=== PATIENT | female | born 1955 | race Caucasian/White ===

== ENCOUNTER 2021-11-30 10:24 | Emergency (ER) | payer OTHER, BC ==
[2021-11-30] MEDS ORDERED: ONDANSETRON 4 MG/2 ML VIAL ONE (11:09)
[2021-11-30] MEDS ORDERED: FENTANYL CITR 100 MCG/2 ML ONE (11:09)
[2021-11-30 11:35] LABS: Absolute Lymphocytes (CBC) 1.3 K/uL (0.7-4.9); Hematocrit 39.5 % (36.0-45.0); Lymphocytes % 23.6 % (15.3-44.8); RBC Red Blood Cell Count 4.62 M/uL (3.86-4.86)
[2021-11-30 11:39] LABS: Calcium Oxalate Crystals- Ur FEW (NONE SEEN); Urine Bacteria <20 /HPF (<20); Urine RBC >50 /HPF (NONE SEEN)
[2021-11-30 11:54] LABS: Albumin 3.4 g/dL (3.4-5.0); Bilirubin Direct 0.1 mg/dL (0-0.2); Bilirubin Total 0.3 mg/dL (0.2-1.0); Potassium 3.2 mmol/L (3.5-5.1); Protein, Total 7.2 g/dL (6.4-8.2)
--- NOTE | 2021-11-30 12:24 | RAD REPORT ---
EXAM DESCRIPTION: CT - Abdomen Pelvis W Contrast - 11/30/2021 12:11 pm CLINICAL HISTORY: ABD PAIN COMPARISON: No comparisons TECHNIQUE: Biphasic, helical CT imaging of the abdomen and pelvis was performed following 100 ml non -ionic IV contrast. No oral contrast administered. All CT scans are performed using dose optimization technique as appropriate and may include automated exposure control or mA/KV adjustment according to patient size. FINDINGS: No suspicious findings in the lung bases. The liver, spleen, and pancreas show no suspicious findings. Gallbladder and biliary tree are also wi thout suspicious finding. Mild left-sided hydronephrosis of the pelvis, calices and proximal ureter is present secondary to a 3 mm stone in the proximal left ureter. This causes delayed function of the left kidney relative to th e right. No right-sided hydronephrosis. No other obstructing or nonobstructing calculi. No pyelonephr itis or acute parenchymal process. Urinary bladder is only partially filled which limits assessment. No adrenal abnormalities. No ovarian abnormality seen. Patient has a lobulated multi fibroid uterus. No dilated bowel loops or bowel wall thickening. Appendix is not clearly defined. No appendicitis fin dings. Small hiatal hernia is present. No free air, free fluid or pneumatosis. No hernia, mass or bu lky lymphadenopathy. No suspicious bony findings. IMPRESSION: Mild left-sided hydronephrosis secondary to a 3 mm stone in the proximal left ureter. Additional nonacute findings detailed in the body of the report.
[2021-11-30] MEDS ORDERED: TAMSULOSIN 0.4 MG SR CAP ONE (13:06)
[2021-11-30] MEDS ORDERED: NA CHLORIDE 0.9% 1,000 ML ONE (13:06)
[2021-11-30] MEDS ORDERED: KETOROLAC 30 MG/ML INJ ONE (13:06)
[2021-11-30] MEDS ORDERED: CIPROFLOXACIN HCL 500 MG TAB ONE (14:20)
--- NOTE | 2021-11-30 15:12 | ER ---
Nurse's Notes [facility] Name: Chrissy Thomson Age: 65 yrs Sex: Female : 1955 Arrival Date: 11/30/2021 Time: 10:31 Bed 17 Private MD: Diagnosis: Calculus of ureter;Coronavirus infection, unspecified Presentation: 11/30 10:51 Chief complaint: Patient states: had a UTI a week ago and this morning she is having iw low back pain , feels like she may have a kidney stone. Coronavirus screen: Client presents with at least one sign or symptom that may indicate coronavirus-19. Ebola Screen: Patient negative for fever greater than or equal to 101.5 degrees Fahrenheit, and additional compatible Ebola Virus Disease symptoms Patient denies exposure to infectious person. Patient denies travel to an Ebola-affected area in the 21 days before illness onset. No symptoms or risks identified at this time. Initial Sepsis Screen: Does the patient meet any 2 criteria? No. Patient's initial sepsis screen is negative. Does the patient have a suspected source of infection? No. Patient's initial sepsis screen is negative. Risk Assessment: Do you want to hurt yourself or someone else? Patient reports no desire to harm self or others. Onset of symptoms was November 30, 2021. 10:51 Method Of Arrival: Ambulatory iw 10:51 Acuity: ROBB 3 iw Historical: - Allergies: 10:52 PENICILLINS; iw 10:52 Codeine; iw - Home Meds: 10:52 None [Active]; iw - PMHx: 10:52 None; iw - PSHx: 10:52 None; iw - Immunization history:: Client reports receiving the 2nd dose of the Covid vaccine. - Social history:: Smoking status: Patient denies any tobacco usage or history of. Screenin:19 Abuse screen: Denies threats or abuse. Nutritional screening: No deficits noted. ae4 Tuberculosis screening: No symptoms or risk factors identified. Fall Risk None identified. Assessment: 11:00 General: Appears uncomfortable, slender, well groomed, Behavior is cooperative, ae4 restless. 11:00 Pain: Pain radiates to left low back Pain currently is 1 out of 10 on a pain scale. ae4 Neuro: Level of Consciousness is awake, alert, obeys commands, Oriented to person, place, time, situation, Appropriate for age. Cardiovascular: Patient's skin is warm and dry. Respiratory: Airway is patent Respiratory effort is even, unlabored, Respiratory pattern is regular. GI: Reports nausea. : Denies burning with urination, urinary frequency. EENT: No signs and/or symptoms were reported regarding the EENT system. Derm: Skin is pink, warm \T\ dry. Musculoskeletal: No signs and/or symptoms reported regarding the musculoskeletal system. 13:19 Reassessment: Patient appears in no apparent distress at this time. Patient and/or ae4 family updated on plan of care and expected duration. Pain level reassessed. Patient is alert, oriented x 3, equal unlabored respirations, skin warm/dry/pink. Patient states feeling better. Patient states symptoms have improved. 13:31 Reassessment: Patient appears in no apparent distress at this time. Patient and/or ae4 family updated on plan of care and expected duration. Pain level reassessed. Patient states feeling better. Patient states symptoms have improved. 13:41 Reassessment: Patient and/or family updated on plan of care and expected duration. Pain ae4 level reassessed. Patient is alert, oriented x 3, equal unlabored respirations, skin warm/dry/pink. Patient states feeling better. Patient states symptoms have improved. Vital Signs: 10:51 BP 159 / 88; Pulse 89; Resp 16; Temp 97.9; Pulse Ox 98% on R/A; Weight 72.57 kg; Height iw 5 ft. 6 in. (167.64 cm); 11:36 BP 160 / 75; Pulse 75; Resp 18; Pulse Ox 97% on R/A; ae4 13:18 BP 164 / 77; Pulse 80; Resp 18; Pulse Ox 100% on R/A; ae4 13:41 BP 137 / 67; Pulse 80; Resp 16; Pulse Ox 100% on R/A; ae4 14:14 BP 143 / 74; Pulse 80; Resp 16; Pulse Ox 100% on R/A; ae4 10:51 Body Mass Index 25.82 (72.57 kg, 167.64 cm) iw ED Course: 10:31 Patient arrived in ED. ds1 10:52 Triage completed. iw 10:53 Arm band placed on. iw 10:55 Marinas, Romie, CIGAR MACHINE FEEDER is PHCP. pm1 10:55 Molina Gutierrez MD is Attending Physician. pm1 10:59 Wil Workman RN is Primary Nurse. ae4 11:00 Call light in reach. Side rails up X 1. Pulse ox on. NIBP on. Warm blanket given. ae4 11:09 Inserted saline lock: 22 gauge in right antecubital area, using aseptic technique. ae4 Blood collected. 12:11 CT Abd/Pelvis - IV Contrast Only In Process Unspecified. EDMS 15:55 No provider procedures requiring assistance completed. IV discontinued, intact, ae4 bleeding controlled, No redness/swelling at site. Pressure dressing applied. Administered Medications: 11:00 Drug: Zofran (Ondansetron) 4 mg Route: IVP; Site: right antecubital; ae4 14:14 Follow up: Response: No adverse reaction ae4 11:12 Drug: fentaNYL (PF) 50 mcg Route: IVP; Site: right antecubital; ae4 13:17 Follow up: Response: Pain is decreased ae4 12:20 Drug: fentaNYL (PF) 50 mcg Route: IVP; Site: right antecubital; ae4 13:18 Follow up: Response: No adverse reaction; Pain is decreased ae4 13:10 Drug: NS 0.9% 1000 ml Route: IV; Rate: 1000 ml; Site: right antecubital; ae4 14:40 Follow up: IV Status: Completed infusion; IV Intake: 1000ml ae4 13:10 Drug: Ketorolac 15 mg Route: IVP; Site: right antecubital; ae4 14:14 Follow up: Response: No adverse reaction; Pain is decreased ae4 13:12 Drug: Flomax (tamsulosin) 0.4 mg Route: PO; ae4 14:14 Follow up: Response: No adverse reaction ae4 14:26 Drug: Cipro (ciprofloxacin) 500 mg Route: PO; ae4 15:54 Follow up: Response: No adverse reaction ae4 Intake: 14:40 IV: 1000ml; Total: 1000ml. ae4 Outcome: 15:12 Discharge ordered by . pm1 15:55 Discharged to home ambulatory. ae4 15:55 Condition: improved 15:55 Discharge instructions given to patient, Instructed on discharge instructions, follow up and referral plans. no drinking with medication, no driving heavy equipment, medication usage, Demonstrated understanding of instructions, Prescriptions given X 4. 15:56 Patient left the ED. ae4 Signatures: Dispatcher [employer] EDNE Yvette Delgado ds1 Alena Corea, RN RN iw Romie Concepcion NP CIGAR MACHINE FEEDER pm1 Wil Workman RN RN ae4
--- NOTE | 2021-11-30 15:12 | EDPHYS ---
Physician Documentation [facility] Name: Chrissy Thomson Age: 65 yrs Sex: Female : 1955 Arrival Date: 11/30/2021 Time: 10:31 Bed 17 Private MD: ED Physician Molina Gutierrez HPI: 11/30 12:16 This 65 yrs old Female presents to ER via Ambulatory with complaints of Back Pain. pm1 12:16 The patient presents with pain that is acute, with no known mechanism of injury. The pm1 symptoms are located in the low back. Onset: The symptoms/episode began/occurred generalized body aches and back pain for the past 1 week, back pain worse today. 12:16 The pain does not radiate. Associated signs and symptoms: Pertinent positives: nausea, pm1 vomiting, Pertinent negatives: abdominal pain, chest pain, fever, shortness of breath. The problem was sustained from unknown cause. Modifying factors: The patient symptoms are alleviated by nothing, the patient symptoms are aggravated by nothing. Severity of symptoms: in the emergency department the symptoms are actually worse. The patient has not experienced similar symptoms in the past. The patient has not recently seen a physician, but discussed her symptoms with PCP at onset and prescribed PCN for possible UTI. Historical: - Allergies: 10:52 PENICILLINS; iw 10:52 Codeine; iw - Home Meds: 10:52 None [Active]; iw - PMHx: 10:52 None; iw - PSHx: 10:52 None; iw - Immunization history:: Client reports receiving the 2nd dose of the Covid vaccine. - Social history:: Smoking status: Patient denies any tobacco usage or history of. ROS: 12:16 Constitutional: Negative for fever, chills, and weight loss, Cardiovascular: Negative pm1 for chest pain, palpitations, and edema, Respiratory: Negative for shortness of breath, cough, wheezing, and pleuritic chest pain. 12:16 : Negative for injury, bleeding, discharge, and swelling, MS/Extremity: Negative for injury and deformity, Skin: Negative for injury, rash, and discoloration, Neuro: Negative for headache, weakness, numbness, tingling, and seizure. 12:16 Abdomen/GI: Positive for nausea and vomiting, Negative for abdominal pain, diarrhea, constipation. 12:16 Back: Positive for flank pain, on the left. 12:16 All other systems are negative. Exam: 12:16 Constitutional: This is a well developed, well nourished patient who is awake, alert, pm1 and in no acute distress. Head/Face: Normocephalic, atraumatic. 12:16 Abdomen/GI: Soft, non-tender, with normal bowel sounds. No distension or tympany. No guarding or rebound. No evidence of tenderness throughout. Back: No spinal tenderness. No costovertebral tenderness. Full range of motion. Skin: Warm, dry with normal turgor. Normal color with no rashes, no lesions, and no evidence of cellulitis. MS/ Extremity: Pulses equal, no cyanosis. Neurovascular intact. Full, normal range of motion. 12:16 Cardiovascular: Exam negative for acute changes, Rate: normal, Rhythm: regular, Pulses: no pulse deficits are appreciated. 12:16 Respiratory: Exam negative for acute changes, respiratory distress, shortness of breath, Breath sounds: are clear throughout. 12:16 Neuro: Exam negative for acute changes, Orientation: is normal, Mentation: is normal, Motor: is normal, moves all fours. Vital Signs: 10:51 BP 159 / 88; Pulse 89; Resp 16; Temp 97.9; Pulse Ox 98% on R/A; Weight 72.57 kg; Height iw 5 ft. 6 in. (167.64 cm); 11:36 BP 160 / 75; Pulse 75; Resp 18; Pulse Ox 97% on R/A; ae4 13:18 BP 164 / 77; Pulse 80; Resp 18; Pulse Ox 100% on R/A; ae4 13:41 BP 137 / 67; Pulse 80; Resp 16; Pulse Ox 100% on R/A; ae4 14:14 BP 143 / 74; Pulse 80; Resp 16; Pulse Ox 100% on R/A; ae4 10:51 Body Mass Index 25.82 (72.57 kg, 167.64 cm) iw MDM: 10:55 Patient medically screened. pm1 15:11 Data reviewed: vital signs. Data interpreted: Pulse oximetry: on room air is 100 %. pm1 Interpretation: normal. 15:11 Counseling: I had a detailed discussion with the patient and/or guardian regarding: the pm1 historical points, exam findings, and any diagnostic results supporting the discharge/admit diagnosis, lab results, radiology results, the need for outpatient follow up, to return to the emergency department if symptoms worsen or persist or if there are any questions or concerns that arise at home. 11/30 10:57 Order name: Basic Metabolic Panel; Complete Time: 12:13 pm1 11/30 10:57 Order name: CBC with Diff; Complete Time: 12:13 pm1 11/30 10:57 Order name: Hepatic Function; Complete Time: 12:13 pm1 11/30 10:57 Order name: Lipase; Complete Time: 12:13 pm1 11/30 10:57 Order name: Urine Microscopic Only; Complete Time: 12:13 pm1 11/30 11:00 Order name: CT Abd/Pelvis - IV Contrast Only; Complete Time: 12:24 pm1 11/30 12:56 Order name: SARS-COV-2 RT PCR; Complete Time: 14:33 EDMS 11/30 10:57 Order name: IV Saline Lock; Complete Time: 11:35 pm1 11/30 10:57 Order name: Labs collected and sent; Complete Time: 11:35 pm1 11/30 10:57 Order name: Urine Dipstick-Ancillary (obtain specimen); Complete Time: 11:35 pm1 Administered Medications: 11:00 Drug: Zofran (Ondansetron) 4 mg Route: IVP; Site: right antecubital; ae4 14:14 Follow up: Response: No adverse reaction ae4 11:12 Drug: fentaNYL (PF) 50 mcg Route: IVP; Site: right antecubital; ae4 13:17 Follow up: Response: Pain is decreased ae4 12:20 Drug: fentaNYL (PF) 50 mcg Route: IVP; Site: right antecubital; ae4 13:18 Follow up: Response: No adverse reaction; Pain is decreased ae4 13:10 Drug: NS 0.9% 1000 ml Route: IV; Rate: 1000 ml; Site: right antecubital; ae4 14:40 Follow up: IV Status: Completed infusion; IV Intake: 1000ml ae4 13:10 Drug: Ketorolac 15 mg Route: IVP; Site: right antecubital; ae4 14:14 Follow up: Response: No adverse reaction; Pain is decreased ae4 13:12 Drug: Flomax (tamsulosin) 0.4 mg Route: PO; ae4 14:14 Follow up: Response: No adverse reaction ae4 14:26 Drug: Cipro (ciprofloxacin) 500 mg Route: PO; ae4 15:54 Follow up: Response: No adverse reaction ae4 Disposition: 12/01 04:38 Co-signature as Attending Physician, Molina Gutierrez MD I agree with the assessment and chao plan of care. Disposition Summary: 11/30/21 15:12 Discharge Ordered Location: Home pm1 Problem: new pm1 Symptoms: have improved pm1 Condition: Stable pm1 Diagnosis - Calculus of ureter pm1 - Coronavirus infection, unspecified pm1 Followup: pm1 - With: Emergency Department - When: As needed - Reason: Worsening of condition Followup: pm1 - With: Private Physician - When: 2 - 3 days - Reason: Recheck today's complaints, Continuance of care, Re-evaluation by your physician Discharge Instructions: - Discharge Summary Sheet pm1 - Kidney Stones pm1 - Dietary Guidelines to Help Prevent Kidney Stones pm1 - COVID-19 pm1 - COVID-19 Frequently Asked Questions pm1 - 10 Things You Can Do to Manage Your COVID-19 Symptoms at Home - [facility] pm1 - COVID-19: Quarantine vs. Isolation - [facility] pm1 Forms: - Medication Reconciliation Form pm1 - Thank You Letter pm1 - Antibiotic Education pm1 - Prescription Opioid Use pm1 Prescriptions: - Cipro 500 mg Oral Tablet - take 1 tablet by ORAL route every 12 hours for 7 days; 14 tablet; Refills: 0, pm1 Product Selection Permitted - ondansetron 4 mg Oral tablet,disintegrating - place 1 tablet by TRANSLINGUAL route every 8 hours As needed; 20 tablet; pm1 Refills: 0, Product Selection Permitted - Flomax 0.4 mg Oral capsule - take 1 capsule by ORAL route once daily for 10 days 1/2 hour following the same pm1 meal each day; 10 capsule; Refills: 0, Product Selection Permitted - Tylenol-Codeine #3 300 mg-30 mg Oral - take 2 tablet by ORAL route every 6 hours As needed; 20 tablet; Refills: 0, pm1 Product Selection Permitted Signatures: Dispatcher [employer] Molina Lee MD MD cha Williams, Irene, RN RN iw Marinas, Patrick, NP PROGRAM TRAINER pm1 Wil Workman RN RN ae4 Corrections: (The following items were deleted from the chart) 11/30 12:56 12:15 CORONAVIRUS+LOLITALeBRZ ordered. EDMS EDMS
[2021-11-30 16:04] VITALS: TEMP 97.9
[2021-11-30 16:07] VITALS: O2SAT 100
[2021-11-30 16:10] VITALS: BP 143/74
== END 2021-11-30 15:56 | disposition home or self-care (01) ==
LOC: ER 10:24
DX: N20.1 Calculus of ureter (principal); U07.1 COVID-19; Z88.0 Allergy status to penicillin
CPT/HCPCS: 96361; 85025; 80048; 36415; 80076; 81015; 83690; 74177; 96375; 96374; 99284; U0003; Q9967; J3010; J7030; J2405

== ENCOUNTER 2021-12-02 09:24 | Emergency (ER) | payer OTHER, BC ==
[2021-12-02 10:13] LABS: Urine Blood 2+ (Negative); Urine Glucose Negative (Negative); Urine Protein 1+ (Negative); Urine Specific Gravity >=1.030 (1.005-1.030)
--- NOTE | 2021-12-02 10:19 | RAD REPORT ---
EXAM DESCRIPTION: CTStone Protocol - 12/02/2021 10:06 am CLINICAL HISTORY: FLANK PAIN COMPARISON: Abdomen Pelvis W Contrast dated 11/30/2021; CTSTONE PROTOCOL dated 06/27/2013 TECHNIQUE: CT of the abdomen and pelvis was performed. All CT scans are performed using dose optimization technique as appropriate and may include automated exposure control or mA/KV adjustment according to patient size. FINDINGS: Lower chest: Small moderate hiatal hernia. Thickened distal esophagus suggesting gastroeso phageal reflux. Liver: No acute abnormality or suspicious lesions. Biliary: No biliary ductal dilatation. Stomach: No significant focal abnormality. Duodenum: No significant focal abnormality. Pancreas: No significant abnormality. Spleen: No significant abnormality. Adrenal: No suspicious lesions. Kidney/ureter: Persistent mild left-sided hydroureteronephrosis. The stone has migrated into the dist al ureter and is just proximal to the left UVJ. The stone measures 3 millimeters. Retroperitoneum: No retroperitoneal adenopathy. Vascular: No aneurysm. Bowel: No significant focal abnormality. Peritoneum: No ascites or free air. Bladder: Grossly unremarkable. Reproductive: Fibroid uterus. Bones: No acute fracture. Other: n/a IMPRESSION: The 3 mm left ureteral stone has migrated into the distal ureter, just proximal to the l eft UVJ. Mild left-sided hydroureteronephrosis persists.
[2021-12-02 10:48] LABS: Urine Bacteria 20-50 /HPF (<20); Urine RBC 20-50 /HPF (NONE SEEN)
[2021-12-02] MEDS ORDERED: NA CHLORIDE 0.9% 1,000 ML ONE ×2 (11:15→12:42)
[2021-12-02] MEDS ORDERED: KETOROLAC 30 MG/ML INJ ONE (11:15)
--- NOTE | 2021-12-02 13:32 | EDPHYS ---
Physician Documentation [facility] Name: Chrissy Thomson Age: 65 yrs Sex: Female : 1955 Arrival Date: 12/02/2021 Time: 09:26 Bed 12 Private MD: Nicole Phipps ED Physician Molina Gutierrez HPI: 12/02 10:41 This 65 yrs old Female presents to ER via Ambulatory with complaints of Back Pain - pm1 kidney stones. 10:41 The patient presents with pain that is acute, with no known mechanism of injury. The pm1 symptoms are located in the left low back. 10:41 Onset: The symptoms/episode began/occurred 3 day(s) ago. The pain does not radiate. pm1 Associated signs and symptoms: Pertinent positives: vomiting, Pertinent negatives: abdominal pain, chest pain, dysuria, fever, SOB. The problem was sustained Diagnosed with 3mm kidney stone 2 days ago. Modifying factors: The patient symptoms are alleviated by nothing, the patient symptoms are aggravated by nothing. Severity of symptoms: in the emergency department the symptoms are unchanged. The patient has not experienced similar symptoms in the past. The patient has been recently seen at the [facility] Emergency Department, for similar complaints labs were performed, CT scan was performed, was given a prescription for antibiotics, was given a prescription for pain medications, was given a prescription for an antiemetic. 10:41 Patient reports that she has not been drinking enough fluids and would like IV fluids pm1 and pain medications. Historical: - Allergies: 09:36 Codeine; iw 09:36 PENICILLINS; iw - Home Meds: 09:36 None [Active]; iw - PMHx: 09:36 None; iw - PSHx: 09:36 None; iw - Immunization history:: Client reports receiving the 2nd dose of the Covid vaccine. - Social history:: Smoking status: Patient denies any tobacco usage or history of. ROS: 10:41 Constitutional: Negative for fever, chills, and weight loss, Cardiovascular: Negative pm1 for chest pain, palpitations, and edema, Respiratory: Negative for shortness of breath, cough, wheezing, and pleuritic chest pain. 10:41 : Negative for injury, bleeding, discharge, and swelling, MS/Extremity: Negative for injury and deformity, Skin: Negative for injury, rash, and discoloration, Neuro: Negative for headache, weakness, numbness, tingling, and seizure. 10:41 Abdomen/GI: Positive for nausea and vomiting, Negative for diarrhea, constipation. 10:41 Back: Positive for flank pain, on the left. 10:41 All other systems are negative. Exam: 10:41 Constitutional: This is a well developed, well nourished patient who is awake, alert, pm1 and in no acute distress. Head/Face: Normocephalic, atraumatic. 10:41 Skin: Warm, dry with normal turgor. Normal color with no rashes, no lesions, and no evidence of cellulitis. MS/ Extremity: Pulses equal, no cyanosis. Neurovascular intact. Full, normal range of motion. 10:41 Cardiovascular: Exam negative for acute changes, Rate: normal, Rhythm: regular, Pulses: no pulse deficits are appreciated, Heart sounds: normal. 10:41 Respiratory: Exam negative for acute changes, respiratory distress, shortness of breath, Breath sounds: are clear throughout. 10:41 Abdomen/GI: Inspection: obese Palpation: abdomen is soft and non-tender, in all quadrants. 10:41 Back: pain, that is mild, of the left low back. 10:41 Neuro: Exam negative for acute changes, Orientation: is normal, Mentation: is normal, Motor: is normal, moves all fours, Gait: is steady, at a normal pace, without difficulty. 11:30 Abdomen/GI: Palpation: abdomen is soft and non-tender, in all quadrants. pm1 11:30 Back: pain, is absent, of the low back area. Vital Signs: 09:34 BP 116 / 74; Pulse 95; Resp 18; Temp 97.2; Pulse Ox 99% ; Weight 74.84 kg; Height 5 ft. iw 6 in. (167.64 cm); Pain 10; 09:34 Body Mass Index 26.63 (74.84 kg, 167.64 cm) iw MDM: 10:41 Data reviewed: vital signs. Data interpreted: Pulse oximetry: on room air is 99 %. pm1 Interpretation: normal. 10:41 Counseling: I had a detailed discussion with the patient and/or guardian regarding: lab pm1 results, radiology results. 10:41 Special discussion: I discussed with the patient the need to follow-up with the pm1 PCP/specialist for the noted incidental finding on X-ray/CT scanning. need for evaluation by GI and possible endoscopy. 10:52 Patient medically screened. chao 12:44 ED course: Patient reports significant improvement in her pain. She requested another pm1 bag of NS prior to discharge. 12/02 09:37 Order name: Urine Microscopic Only; Complete Time: 10:55 12/02 10:13 Order name: Urine Dipstick-Ancillary; Complete Time: 10:30 EDOK 12/02 09:37 Order name: CT Stone Protocol; Complete Time: 10:30 12/02 10:50 Order name: Urine Culture EDMS 12/02 09:37 Order name: Urine Dipstick-Ancillary (obtain specimen); Complete Time: 11:13 12/02 10:41 Order name: IV Saline Lock; Complete Time: 11:05 pm1 Administered Medications: 11:17 Drug: Ketorolac 15 mg Route: IVP; Site: right antecubital; iw 11:17 Drug: NS 0.9% 1000 ml Route: IV; Rate: 1000 ml; Site: right antecubital; iw 12:58 Drug: Zofran (Ondansetron) 4 mg Route: IVP; Site: right antecubital; iw 12:58 Drug: NS 0.9% 1000 ml Route: IV; Rate: 1000 ml; Site: right antecubital; iw 14:02 Drug: Promethazine 25 mg Route: PO; iw Disposition: 12/03 08:43 Co-signature as Attending Physician, Molina Gutierrez MD I agree with the assessment and [facility] plan of care. Disposition Summary: 12/02/21 13:31 Discharge Ordered Location: Home pm1 Problem: new pm1 Symptoms: have improved pm1 Condition: Stable pm1 Diagnosis - Calculus of ureter pm1 Followup: pm1 - With: Emergency Department - When: As needed - Reason: Worsening of condition Followup: pm1 - With: Private Physician - When: 2 - 3 days - Reason: Recheck today's complaints, Continuance of care, Re-evaluation by your physician Discharge Instructions: - Discharge Summary Sheet pm1 - Kidney Stones pm1 - Dietary Guidelines to Help Prevent Kidney Stones pm1 Forms: - Medication Reconciliation Form pm1 - Thank You Letter pm1 - Antibiotic Education pm1 - Prescription Opioid Use pm1 Prescriptions: - promethazine 25 mg Rectal suppository - insert 1 suppository by RECTAL route every 6 hours As needed; 12 suppository; pm1 Refills: 0, Product Selection Permitted - promethazine 25 mg Oral Tablet - take 1 tablet by ORAL route every 6 hours As needed; 20 tablet; Refills: 0, pm1 Product Selection Permitted Signatures: Dispatcher [employer] EDMolina Harman MD MD cha Williams, Irene, RN RN Romie Kan, OIL FIELD PUMPER OIL FIELD PUMPER pm1 Corrections: (The following items were deleted from the chart) 12/02 09:37 09:36 PSHx: Unable to Obtain; 09:37 09:36 PSHx: Unable to Obtain; [facility] 11:25 10:41 Patient reports that she has not been drinking enough fluids. pm1 pm1
--- NOTE | 2021-12-02 13:32 | ER ---
Nurse's Notes [facility] Name: Chrissy Thomson Age: 65 yrs Sex: Female : 1955 Arrival Date: 12/02/2021 Time: 09:26 Bed 12 Private MD: Nicole Phipps Diagnosis: Calculus of ureter Presentation: 12/02 09:34 Chief complaint: Patient states: left flank pain for 5 days ago. Diagnosed with kidney iw stone on the 1st, but pain is worse. Coronavirus screen: Vaccine status: Patient reports receiving the 2nd dose of the covid vaccine. Ebola Screen: Patient negative for fever greater than or equal to 101.5 degrees Fahrenheit, and additional compatible Ebola Virus Disease symptoms Patient denies exposure to infectious person. Patient denies travel to an Ebola-affected area in the 21 days before illness onset. No symptoms or risks identified at this time. Initial Sepsis Screen: Does the patient meet any 2 criteria? No. Patient's initial sepsis screen is negative. Does the patient have a suspected source of infection? No. Patient's initial sepsis screen is negative. Risk Assessment: Do you want to hurt yourself or someone else? Patient reports no desire to harm self or others. Onset of symptoms was November 28, 2021. 09:34 Method Of Arrival: Ambulatory iw 09:34 Acuity: ROBB 3 iw Historical: - Allergies: 09:36 Codeine; iw 09:36 PENICILLINS; iw - Home Meds: 09:36 None [Active]; iw - PMHx: 09:36 None; iw - PSHx: 09:36 None; iw - Immunization history:: Client reports receiving the 2nd dose of the Covid vaccine. - Social history:: Smoking status: Patient denies any tobacco usage or history of. Assessment: 14:02 Reassessment: Patient appears in no apparent distress at this time. Patient and/or iw family updated on plan of care and expected duration. Pain level reassessed. Patient is alert, oriented x 3, equal unlabored respirations, skin warm/dry/pink. Vital Signs: 09:34 BP 116 / 74; Pulse 95; Resp 18; Temp 97.2; Pulse Ox 99% ; Weight 74.84 kg; Height 5 ft. iw 6 in. (167.64 cm); Pain 10/10; 09:34 Body Mass Index 26.63 (74.84 kg, 167.64 cm) iw ED Course: :26 Patient arrived in ED. as 09:26 Nicole Phipps is Private Physician. as 09:36 Triage completed. iw 09:37 Arm band placed on right wrist. iw 10:06 CT Stone Protocol In Process Unspecified. EDMS 10:31 Romie Concepcion NP is PHCP. pm1 10:31 Molina Gutierrez MD is Attending Physician. pm1 11:17 Alena Corea RN is Primary Nurse. iw 14:02 No provider procedures requiring assistance completed. iw Administered Medications: 11:17 Drug: Ketorolac 15 mg Route: IVP; Site: right antecubital; iw 11:17 Drug: NS 0.9% 1000 ml Route: IV; Rate: 1000 ml; Site: right antecubital; iw 12:58 Drug: Zofran (Ondansetron) 4 mg Route: IVP; Site: right antecubital; iw 12:58 Drug: NS 0.9% 1000 ml Route: IV; Rate: 1000 ml; Site: right antecubital; iw 14:02 Drug: Promethazine 25 mg Route: PO; iw Outcome: 13:31 Discharge ordered by MD. pm1 14:02 Discharged to home ambulatory, with family. iw 14:02 Condition: good 14:02 Discharge instructions given to patient, Instructed on discharge instructions, follow up and referral plans. 14:02 Patient left the ED. iw Signatures: Dispatcher [employer] EDHI Ruth Short as Alena Corea RN RN iw Romie Concepcion NP [employer] pm1 Corrections: (The following items were deleted from the chart) 09:37 09:36 PSHx: Unable to Obtain; iw iw 09:37 09:36 PSHx: Unable to Obtain; iw iw
[2021-12-02] MEDS ORDERED: PROMETHAZINE 25 MG TABLET ONE (13:59)
[2021-12-02 14:13] VITALS: BP 116/74; TEMP 97.2; O2SAT 99
== END 2021-12-02 14:02 | disposition home or self-care (01) ==
LOC: ER 09:24
DX: N20.1 Calculus of ureter (principal); Z88.0 Allergy status to penicillin; Z88.5 Allergy status to narcotic agent
CPT/HCPCS: 87088; 87086; 76377; 74176; 96375; 96374; 99283; J7030 ×2; 81003; 81015; Q0169

== ENCOUNTER 2023-09-27 13:17 | Emergency (ER) | payer OTHER, BC ==
[2023-09-27 13:57] LABS: Specific Gravity 1.028 (1.005-1.030); Urine Bacteria >50 /HPF (<20); Urine Bilirubin NEGATIVE (Negative); Urine Blood 3+ (Negative); Urine Clarity Extremely Turbid (Clear); Urine Color Yellow (Yellow); Urine Glucose NEGATIVE (Negative); Urine Mucus Slight /HPF (None Seen); Urine Protein TRACE (Negative); Urine Urobilinogen Normal (Normal)
[2023-09-27] MEDS ORDERED: NA CHLORIDE 0.9% 1,000 ML ONE (14:35)
[2023-09-27 15:16] LABS: Specific Gravity < 1.005 (1.005-1.030); Urine Bacteria <20 /HPF (<20); Urine Bilirubin NEGATIVE (Negative); Urine Blood Negative (Negative); Urine Clarity Clear (Clear); Urine Color Colorless (Yellow); Urine Glucose NEGATIVE (Negative); Urine Protein NEGATIVE (Negative); Urine RBC <5 /HPF (None Seen); Urine Urobilinogen Normal (Normal)
--- NOTE | 2023-09-27 15:20 | ER ---
Nurse's Notes [facility] Name: Chrissy Thomson Age: 67 yrs Sex: Female : 1955 Arrival Date: 09/27/2023 Time: 13:17 Bed 14 Private MD: Diagnosis: Dysuria Presentation: 09/27 13:31 Chief complaint: Patient states: "For the past few months, I've been dealing with a mb9 bladder infection and now the pain goes to my back. I saw a specialist and he gave me antibiotics and Rocephin shot and it's not helping. It just keeps reoccurring.". Coronavirus screen: Vaccine status: Patient reports being unvaccinated. Ebola Screen: No symptoms or risks identified at this time. Initial Sepsis Screen: Does the patient meet any 2 criteria? No. Patient's initial sepsis screen is negative. Does the patient have a suspected source of infection? No. Patient's initial sepsis screen is negative. Risk Assessment: Do you want to hurt yourself or someone else? Patient reports no desire to harm self or others. Onset of symptoms was September 27, 2023. 13:31 Method Of Arrival: Ambulatory mb9 13:31 Acuity: ROBB 3 mb9 Triage Assessment: 13:34 General: Appears in no apparent distress. Behavior is calm, cooperative. Pain: mb9 Complains of pain in back. EENT: No signs and/or symptoms were reported regarding the EENT system. Neuro: Patterson Agitation-Sedation Scale (RASS): 0 - Alert and Calm Level of Consciousness is awake, alert, obeys commands, Oriented to person, place, time, situation, Appropriate for age. Cardiovascular: Patient's skin is warm and dry. Respiratory: Airway is patent Respiratory effort is even, unlabored, Respiratory pattern is regular, symmetrical. : Reports cloudy urine and blood in urine Denies burning with urination. Historical: - Allergies: 13:33 Codeine; mb9 13:33 PENICILLINS; mb9 - Home Meds: 13:33 lisinopril Oral [Active]; mb9 - PMHx: 13:33 Hypertensive disorder; mb9 - PSHx: 13:33 None; mb9 - Immunization history:: Adult Immunizations up to date. - Social history:: Smoking status: Patient denies any tobacco usage or history of. Screenin:47 [facility] ED Fall Risk Assessment (Adult) History of falling in the last 3 months, ld1 including since admission No falls in past 3 months (0 pts). Abuse screen: Denies threats or abuse. Denies injuries from another. Nutritional screening: No deficits noted. Tuberculosis screening: No symptoms or risk factors identified. Assessment: 13:47 General: Appears in no apparent distress. uncomfortable, Behavior is calm, cooperative, ld1 appropriate for age. Pain: Complains of pain in low back area and right low back Pain does not radiate. Pain currently is 8 out of 10 on a pain scale. Quality of pain is described as throbbing, Pain began 1 day ago. Is continuous. Neuro: Level of Consciousness is awake, alert, obeys commands, Oriented to person, place, time, situation. Cardiovascular: Capillary refill < 3 seconds Patient's skin is warm and dry. Respiratory: Airway is patent Respiratory effort is even, unlabored. GI: Abdomen is flat, non-distended. : Urine is clear, Reports pain with urination. EENT: No signs and/or symptoms were reported regarding the EENT system. Derm: No signs and/or symptoms reported regarding the dermatologic system. Musculoskeletal: No signs and/or symptoms reported regarding the musculoskeletal system. 14:27 Reassessment: Patient appears in no apparent distress at this time. No changes from jl7 previously documented assessment. Patient and/or family updated on plan of care and expected duration. Pain level reassessed. Patient is alert, oriented x 3, equal unlabored respirations, skin warm/dry/pink. Notified pt we need a new urine sample, the original was contaminated. Pt verbally agrees to straight cath once some fluids are in. 15:20 Reassessment: Dr. Molina at bedside discussing results and POC. jl7 15:43 Reassessment: Pt reports decreased pain, rated 0/10 at this time. jl7 Vital Signs: 13:31 BP 131 / 85; Pulse 88; Resp 18; Temp 97.7; Pulse Ox 98% on R/A; Weight 81.19 kg; Height mb9 5 ft. 6 in. ; Pain 8/10; 14:27 BP 124 / 72; Pulse 79; Resp 15; Pulse Ox 99% ; jl7 15:40 BP 123 / 77; Pulse 86; Resp 15; Pulse Ox 98% ; Pain 0/10; jl7 13:31 Body Mass Index 28.89 (81.19 kg, 167.64 cm) mb9 13:31 Pain Scale: Adult mb9 15:40 Pain Scale: Adult jl7 ED Course: 13:20 Patient arrived in ED. mg5 13:30 Hermann Molina MD is Attending Physician. ec2 13:33 Triage completed. mb9 13:33 Arm band placed on. mb9 13:47 Layla Siddiqi RN is Primary Nurse. ld1 13:47 Patient has correct armband on for positive identification. Placed in gown. Bed in low ld1 position. Call light in reach. Side rails up X2. Pulse ox on. NIBP on. Door closed. Noise minimized. Warm blanket given. 13:47 No provider procedures requiring assistance completed. Inserted saline lock: in right ld1 antecubital area, using aseptic technique. Blood collected. 13:49 Urinalysis w/ reflexes Sent. ld1 14:11 Report received from DENI Rich. jl7 14:28 Urine collected: straight cath specimen, clear. Straight cath inserted, using sterile jl7 technique, 14 Fr. Specimen obtained. Returned clear yellow urine. 14:30 Provided Education on: Reason for straight cath urine collection. jl7 15:44 IV discontinued, intact, bleeding controlled, No redness/swelling at site. Pressure jl7 dressing applied. Administered Medications: 09/26 15:25 Drug: Ketorolac IVP 30 mg IVP once Route: IVP; Site: right antecubital; jl7 09/27 15:42 Follow up: Response: No adverse reaction; Pain is decreased jl7 14:26 Drug: NS 0.9% IV 1000 ml IV at 1 bolus Per protocol; 1000 mL bolus Route: IV; Rate: 1 jl7 bolus; Site: right antecubital; 15:10 Follow up: IV Status: Completed infusion; IV Intake: 500ml jl7 Medication: 13:47 VIS not applicable for this client. ld1 Intake: 15:10 IV: 500ml; Total: 500ml. jl7 Outcome: 15:19 Discharge ordered by . ec2 15:43 Discharged to home ambulatory, jl7 15:43 Condition: stable 15:43 Discharge instructions given to patient, Instructed on discharge instructions, follow up and referral plans. Demonstrated understanding of instructions, follow-up care, 15:44 Patient left the ED. jl7 Signatures: Grace Chaudhary RN RN jl7 Layla Siddiqi RN RN ld1 Emani Morgan RN RN mb9 Melida Pascual 5 Hermann Molina MD MD ec2
--- NOTE | 2023-09-27 15:20 | EDPHYS ---
Physician Documentation [facility] Name: Chrissy Thomson Age: 67 yrs Sex: Female : 1955 Arrival Date: 09/27/2023 Time: 13:17 Bed 14 Private MD: ED Physician Hermann Molina HPI: 09/27 13:54 This 67 yrs old Female presents to ER via Ambulatory with complaints of ec2 Bladder Infection. 13:54 Patient arrives today due to concern for urinary tract infection. Patient reports that ec2 she has a history of recurrent urinary tract infection and is on chronic antibiotics with Macrobid, is having low back pain. Patient reports no dysuria, no urinary frequency, no fevers, no chills, no nausea, no vomiting.. Historical: - Allergies: 13:33 Codeine; mb9 13:33 PENICILLINS; mb9 - Home Meds: 13:33 lisinopril Oral [Active]; mb9 - PMHx: 13:33 Hypertensive disorder; mb9 - PSHx: 13:33 None; mb9 - Immunization history:: Adult Immunizations up to date. - Social history:: Smoking status: Patient denies any tobacco usage or history of. ROS: 13:54 Constitutional: as per hpi ec2 Exam: 13:54 Constitutional: GEN: NAD Head: atraumatic Eyes: EOMI Ears: External ears are ec2 normal. CV: regular rate LUNGS: no respiratory distress ABD: non-distended, soft, nontender, no guarding, nonrigid SKIN: no evidence of rashes MSK: no evidence of trauma NEURO: moves all extremities equally Vital Signs: 13:31 BP 131 / 85; Pulse 88; Resp 18; Temp 97.7; Pulse Ox 98% on R/A; Weight 81.19 kg; Height mb9 5 ft. 6 in. ; Pain 8/10; 14:27 BP 124 / 72; Pulse 79; Resp 15; Pulse Ox 99% ; jl7 15:40 BP 123 / 77; Pulse 86; Resp 15; Pulse Ox 98% ; Pain 0/10; jl7 13:31 Body Mass Index 28.89 (81.19 kg, 167.64 cm) mb9 13:31 Pain Scale: Adult mb9 15:40 Pain Scale: Adult jl7 MDM: 13:30 Patient medically screened. ec2 13:54 ED course: Patient arrives today due to concern for urinary concerns. Examination ec2 remarkable for benign abdomen is otherwise reassuring with a reassuring vital signs. Will obtain urine studies and reassess the patient. Currently considering UTI, chronic pain, low suspicion for intra-abdominal infection given her reassuring vital signs and examination. . 14:11 ED course: Urine is not impressively infectious appearing, is contaminated, does have ec2 greater than 50 bacteria, slight amount of WBCs as well as low amount of leuk esterase present. I will attempt her repeat specimen. . 15:18 Data reviewed: vital signs. ED course: UA is noninfectious appearing. Will discharge ec2 home and have her follow-up with her urologist. Return precautions given . 09/27 13:31 Order name: Urinalysis w/ reflexes; Complete Time: 14:10 ec2 09/27 14:12 Order name: UAM; Complete Time: 15:18 ec2 Administered Medications: 09/26 15:25 Drug: Ketorolac IVP 30 mg IVP once Route: IVP; Site: right antecubital; jl7 09/27 15:42 Follow up: Response: No adverse reaction; Pain is decreased jl7 14:26 Drug: NS 0.9% IV 1000 ml IV at 1 bolus Per protocol; 1000 mL bolus Route: IV; Rate: 1 jl7 bolus; Site: right antecubital; 15:10 Follow up: IV Status: Completed infusion; IV Intake: 500ml jl7 Disposition Summary: 09/27/23 15:19 Discharge Ordered Notes: Location: Home ec2 Condition: Stable ec2 Diagnosis - Dysuria ec2 Forms: - Medication Reconciliation Form ec2 - Thank You Letter ec2 - Antibiotic Education ec2 - Prescription Opioid Use ec2 - Patient Portal Instructions ec2 - Leadership Thank You Letter ec2 Signatures: Dispatcher [employer] Grace Badillo RN RN jl7 Emani Morgan RN RN mb9 Hermann Molina MD MD ec2
[2023-09-27] MEDS ORDERED: KETOROLAC 30 MG/ML INJ ONE (15:35)
[2023-09-27 15:51] VITALS: TEMP 97.7
[2023-09-27 15:53] VITALS: BP 123/77; O2SAT 98
== END 2023-09-27 15:44 | disposition home or self-care (01) ==
LOC: ER 13:17
DX: R30.0 Dysuria (principal); M54.50 Low back pain, unspecified; Z88.0 Allergy status to penicillin; Z88.5 Allergy status to narcotic agent
CPT/HCPCS: 96361; 81001 ×2; 51702; 96374; 99285; J7030

== ENCOUNTER 2024-06-08 11:05 | Emergency (ER) | payer OTHER, BC ==
[2024-06-08 12:56] LABS: Urine Bacteria <20 /HPF (<20); Urine Bilirubin NEGATIVE (Negative); Urine Blood 1+ (Negative); Urine Clarity Extremely Turbid (Clear); Urine Color Light-Yellow (Yellow); Urine Culture Reflex Order REFLEXED; Urine Glucose NEGATIVE (Negative); Urine Ketones NEGATIVE (Negative); Urine Microscopic Reflex YN ORDER UMIC; Urine Mucus Slight /HPF (None Seen); Urine Nitrite NEGATIVE (Negative); Urine Protein TRACE (Negative); Urine RBC <5 /HPF (None Seen); Urine Urobilinogen Normal (Normal); Urine WBC >50 /HPF (<5); Urine WBC Clump Occasional /HPF (None Seen); Urine pH 5.5 (5.0-7.0)
--- NOTE | 2024-06-08 14:28 | EDPHYS ---
Physician Documentation [facility] Name: Chrissy Thomson Age: 68 yrs Sex: Female : 1955 Arrival Date: 06/08/2024 Time: 11:05 Bed 12 Private MD: ED Physician Clement Maldonado HPI: 06/08 14:25 This 68 yrs old Female presents to ER via Ambulatory with complaints of Urinary Problem.rn 14:25 The patient presents with pain that is acute. The symptoms are located in the low back. rn Onset: The symptoms/episode began/occurred yesterday. Modifying factors: The patient symptoms are alleviated by nothing, the patient symptoms are aggravated by nothing. The patient has experienced similar episodes in the past. Patient reports low back pain and feels another urine infection. Has had multiple UTIs in the past. Had Cipro prescription 2 weeks ago but does not feel like completely got over it. No fever or chills. No vomiting. No trauma. No history of kidney stones. No hematuria.. Historical: - Allergies: 11:49 Codeine; jl7 11:49 PENICILLINS; jl7 - PMHx: 11:49 Hypertensive disorder; jl7 - Immunization history:: Adult Immunizations unknown. - Infectious Disease History:: Denies. - Social history:: Smoking status: Patient denies any tobacco usage or history of. - Family history:: not pertinent. - Hospitalizations: : No recent hospitalization is reported. ROS: 14:25 Constitutional: Negative for fever, chills, and weight loss, Cardiovascular: Negative rn for chest pain, palpitations, and edema, Respiratory: Negative for shortness of breath, cough, wheezing, and pleuritic chest pain, Abdomen/GI: Negative for abdominal pain, nausea, vomiting, diarrhea, and constipation, Back: Positive for low back pain : Negative for injury, bleeding, discharge, and swelling, MS/Extremity: Negative for injury and deformity, Skin: Negative for injury, rash, and discoloration, Neuro: Negative for headache, weakness, numbness, tingling, and seizure, Exam: 14:25 Constitutional: This is a well developed, well nourished patient who is awake, alert, rn and in no acute distress. Cardiovascular: Regular rate and rhythm . No pulse deficits. Back: No spinal tenderness. No costovertebral tenderness. Vital Signs: 11:47 BP 150 / 75; Pulse 83; Resp 17; Temp 97.6; Pulse Ox 94% ; Weight 77.11 kg; Height 5 ft. jl7 6 in. ; Pain 9/10; 14:51 BP 138 / 77; Pulse 79; Resp 18; Temp 98.9; Pulse Ox 97% on R/A; ph 11:47 Body Mass Index 27.44 (77.11 kg, 167.64 cm) jl7 11:47 Pain Scale: Adult jl7 MDM: 11:35 Patient medically screened. rn 14:25 Differential diagnosis: arthritis, UTI, cystitis, pyelonephritis. Data reviewed: vital rn signs, nurses notes, lab test result(s), and as a result, I will discharge patient. Counseling: I had a detailed discussion with the patient and/or guardian regarding the historical points, exam findings, and any diagnostic results supporting the discharge/admit diagnosis, lab results, the need for outpatient follow up, to return to the emergency department if symptoms worsen or persist or if there are any questions or concerns that arise at home. Special discussion: I discussed with the patient/guardian in detail that at this point there is no indication for admission to the hospital. It is understood, however, that if the symptoms persist or worsen the patient needs to return immediately for re-evaluation. ED course: patient requests shot of Rocephin as it has helped her in the past. Will discharge home as urinary tract infection with return precautions. I have personally reviewed all of the results, including but not limited to blood tests deemed necessary to safely discharge this patient at this time. Patient will follow-up with PCP and or specialist as discussed. Return precautions given and understood. . 06/08 11:50 Order name: Urinalysis w/ reflexes; Complete Time: 14:25 rn 06/08 13:00 Order name: Urine Culture EDMS Administered Medications: 14:48 Drug: Rocephin (cefTRIAXone) IM 1 grams IM once Route: IM; Site: left gluteus; ph 14:52 Follow up: Response: No adverse reaction; Medication administered at discharge. ph Disposition Summary: 06/08/24 14:28 Discharge Ordered Notes: Location: Home rn Problem: new rn Symptoms: have improved rn Condition: Stable rn Diagnosis - UTI/ Urinary tract infection, site not specified rn Followup: rn - With: Private Physician - When: As needed - Reason: Recheck today's complaints, Re-evaluation by your physician Discharge Instructions: - Discharge Summary Sheet rn - Urinary Tract Infection, Adult rn Forms: - Medication Reconciliation Form rn - Antibiotic pattern drum maker - Prescription Opioid Use rn - Patient Portal Instructions rn - Leadership Thank You Letter rn Prescriptions: - Diflucan 150 mg Oral Tablet - take 1 tablet ORAL route one time for 1 day; 1 tablet; Refills: 0, Product rn Selection Permitted - Tramadol 50 mg Oral Tablet - take 1 tablet ORAL route every 8 hours as needed; 12 tablet; Refills: 0, rn Product Selection Permitted - cefpodoxime 100 mg Oral Tablet - take 2 tablets ORAL route every 12 hours for 10 days take with food; 40 tablet; rn Refills: 0, Product Selection Permitted Signatures: Dispatcher [employer] Clement Barron MD MD rn Hall, Patricia RN RN Grace Baez, RN RN jl7
--- NOTE | 2024-06-08 14:28 | ER ---
Nurse's Notes [facility] Name: Chrissy Thomson Age: 68 yrs Sex: Female : 1955 Arrival Date: 06/08/2024 Time: 11:05 Bed 12 Private MD: Diagnosis: UTI/ Urinary tract infection, site not specified Presentation: 06/08 11:47 Chief complaint: Patient states: Bilateral flank pain since yesterday, reports jl7 recurring bladder infections. Coronavirus screen: At this time, the client does not indicate any symptoms associated with coronavirus-19. Ebola Screen: No symptoms or risks identified at this time. Initial Sepsis Screen: Does the patient meet any 2 criteria? No. Patient's initial sepsis screen is negative. Does the patient have a suspected source of infection? No. Patient's initial sepsis screen is negative. Risk Assessment: Do you want to hurt yourself or someone else? Patient reports no desire to harm self or others. Onset of symptoms was June 07, 2024. 11:47 Method Of Arrival: Ambulatory jl7 11:47 Acuity: ROBB 3 jl7 Triage Assessment: 11:49 General: Appears in no apparent distress. uncomfortable, Behavior is calm, cooperative, jl7 appropriate for age. Pain: Complains of pain in low back area. : Reports pain in bilateral flank(s). Historical: - Allergies: 11:49 Codeine; jl7 11:49 PENICILLINS; jl7 - PMHx: 11:49 Hypertensive disorder; jl7 - Immunization history:: Adult Immunizations unknown. - Infectious Disease History:: Denies. - Social history:: Smoking status: Patient denies any tobacco usage or history of. - Family history:: not pertinent. - Hospitalizations: : No recent hospitalization is reported. Screenin:49 [facility] ED Fall Risk Assessment (Adult) History of falling in the last 3 months, ph including since admission No falls in past 3 months (0 pts) Confusion or Disorientation No (0 pts) Intoxicated or Sedated No (0 pts) Impaired Gait No (0 pts) Mobility Assist Device Used No (0 pt) Altered Elimination No (0 pt) Score/Fall Risk Level 0 - 2 = Low Risk Oriented to surroundings, Maintained a safe environment, Hourly rounding (assess needs \T\ fall precautionary measures) done. Abuse screen: Denies threats or abuse. Denies injuries from another. Nutritional screening: No deficits noted. Tuberculosis screening: No symptoms or risk factors identified. Assessment: 14:50 General: Appears in no apparent distress. comfortable, Behavior is calm, cooperative, ph appropriate for age. Pain: Complains of pain in low back area. Neuro: Level of Consciousness is awake, alert, obeys commands, Oriented to person, place, time, situation. Cardiovascular: Capillary refill < 3 seconds in bilateral fingers Patient's skin is warm and dry. Respiratory: Airway is patent Respiratory effort is even, unlabored. : Reports burning with urination, pain in lower back urinary frequency. Derm: Skin is pink, warm \T\ dry. Vital Signs: 11:47 BP 150 / 75; Pulse 83; Resp 17; Temp 97.6; Pulse Ox 94% ; Weight 77.11 kg; Height 5 ft. jl7 6 in. ; Pain 9/10; 14:51 BP 138 / 77; Pulse 79; Resp 18; Temp 98.9; Pulse Ox 97% on R/A; ph 11:47 Body Mass Index 27.44 (77.11 kg, 167.64 cm) jl7 11:47 Pain Scale: Adult jl7 ED Course: 11:10 Patient arrived in ED. im 11:35 Clement Maldonado MD is Attending Physician. rn 11:49 Triage completed. jl7 11:49 Arm band placed on right wrist. Patient placed in waiting room, Patient notified of jl7 wait time. 12:26 Urine collected: clean catch specimen, clear. jl7 12:31 Urinalysis w/ reflexes Sent. jb4 13:21 Naa Elizondo, RN is Primary Nurse. ph 13:21 Patient placed in an exam room, on a stretcher. jl7 14:51 Patient has correct armband on for positive identification. Bed in low position. Call ph light in reach. 14:51 No provider procedures requiring assistance completed. Patient did not have IV access ph during this emergency room visit. Administered Medications: 14:48 Drug: Rocephin (cefTRIAXone) IM 1 grams IM once Route: IM; Site: left gluteus; ph 14:52 Follow up: Response: No adverse reaction; Medication administered at discharge. ph Medication: 14:51 VIS not applicable for this client. ph Outcome: 14:28 Discharge ordered by . rn 14:52 Discharged to home ambulatory, 14:52 Condition: good 14:52 Discharge instructions given to patient, Instructed on discharge instructions, follow up and referral plans. medication usage, Demonstrated understanding of instructions, follow-up care, medications, Prescriptions given X 3, 14:52 Patient left the ED. ph Signatures: Clement Maldonado MD MD rn Hall, Patricia, RN RN Nahum Gonsalves RN RN [email or web address] Grace Chaudhary RN RN jl7 Michelle Prakash
[2024-06-08] MEDS ORDERED: LIDOCAINE 1% MPF 2 ML AMPULE ONE (14:37)
[2024-06-08] MEDS ORDERED: CEFTRIAXONE 1000 MG/VIAL ONE (14:37)
[2024-06-08 16:44] VITALS: BP 138/77; TEMP 98.9; O2SAT 97
== END 2024-06-08 14:52 | disposition home or self-care (01) ==
LOC: ER 11:05
DX: N39.0 Urinary tract infection, site not specified (principal)
CPT/HCPCS: 87088; 81001; 87086; 96372; 99284; J0696